=== PATIENT | female | born 1940 | race Two or more races ===

== ENCOUNTER 2023-11-18 14:58 | Emergency (ER) | payer BC, MEDICARE ==
[~2023-11-18] VITALS: Ht 152.4 cm; Wt 65.8 kg
[2023-11-18 15:42] VITALS: BP 132/66; TEMP 97.9; O2SAT 99
== END 2023-11-18 15:42 | disposition home or self-care (01) ==
LOC: ER 15:25
DX: S01.01XA Laceration without foreign body of scalp, initial encounter (principal); W01.0XXA Fall on same level from slipping, tripping and stumbling without subsequent striking against object, initial encounter; Y93.89 Activity, other specified; Y92.89 Other specified places as the place of occurrence of the external cause; Y99.8 Other external cause status